=== PATIENT | male | born 1995 | race Caucasian/White ===

== ENCOUNTER 2020-07-30 00:28 | Emergency (ER) | payer MEDICAID ==
[~2020-07-30] VITALS: Ht 180.3 cm; Wt 127.3 kg
[2020-07-30 02:30] VITALS: BP 138/82
== END 2020-07-30 02:40 | disposition home or self-care (01) ==
LOC: EMS 00:34
DX: R00.2 Palpitations (principal); F14.10 Cocaine abuse, uncomplicated; F19.10 Other psychoactive substance abuse, uncomplicated; F17.210 Nicotine dependence, cigarettes, uncomplicated
CPT/HCPCS: 93005; 99283